=== PATIENT | male | born 2005 | race Hispanic/Latino ===

== ENCOUNTER 2023-01-07 14:01 | Emergency (ER) | payer OTHER ==
[2023-01-07] MEDS ORDERED: Ketorolac Tromethamine 30 MG/ML VIAL ONE (16:58)
== END 2023-01-07 18:15 | disposition home or self-care (01) ==
LOC: ERS 14:01
DX: S20.219A Contusion of unspecified front wall of thorax, initial encounter (principal); M25.522 Pain in left elbow; V43.62XA Car passenger injured in collision with other type car in traffic accident, initial encounter
CPT/HCPCS: 71045; 93005; 96372; J1885